=== PATIENT | male | born 1985 | race Caucasian/White ===

== ENCOUNTER 2018-03-03 10:58 | Emergency (ER) | payer SELFPAY ==
[2018-03-03] MEDS ORDERED: IBUPROFEN 400 MG TAB ONE (14:03)
[2018-03-03] MEDS ORDERED: LIDOCAINE 1% 20 ML MDV ONE (14:50)
[2018-03-03] MEDS ORDERED: LIDOCAINE 1% W/EPI 1:100,000 MDV 50 ML VIAL ONE (14:51)
--- NOTE | 2018-03-03 15:25 | RAD REPORT ---
EXAM DESCRIPTION: RAD - Hand Right 3 View - 03/03/2018 2:31 pm CLINICAL HISTORY: Pain and swelling, right hand. COMPARISON: None. FINDINGS: Soft tissue swelling is seen affecting the fourth digit. No fracture, dislocation or forei gn body is present.
[2018-03-03] MEDS ORDERED: CEFAZOLIN SODIUM 1 GM/VIAL ONE (16:01)
[2018-03-03] MEDS ORDERED: WATER FOR INJ,STERILE 10 ML ONE (16:01)
--- NOTE | 2018-03-03 16:16 | ER ---
Nurse's Notes [facility] Name: Navi Cool Age: 32 yrs Sex: Male : 1985 Arrival Date: 03/03/2018 Time: 10:59 Bed 28 Private MD: Diagnosis: Laceration of flexor muscle, fascia and tendon of right ring finger at wrist and hand level;Laceration without foreign body of right hand Presentation: 03/03 11:36 Presenting complaint: Patient states: " I was rolling up a broken tape measure and it ph broke and stabbed me in the ring finger. It's not bleeding much but I can't really move it." Reports puncture to base of R ring finger. Transition of care: patient was not received from another setting of care. Onset of symptoms was March 03, 2018. Initial Sepsis Screen: Does the patient meet any 2 criteria? No. Patient's initial sepsis screen is negative. Does the patient have a suspected source of infection? No. Patient's initial sepsis screen is negative. Care prior to arrival: None. 11:36 Method Of Arrival: Ambulatory ph 11:36 Acuity: ABA 4 ph Historical: - Allergies: 11:39 No Known Allergies; ph - Home Meds: 11:39 None [Active]; ph - PMHx: 11:39 diabetes-controlled w/ diet; ph - PSHx: 11:39 None; ph - Immunization history:: Last tetanus immunization: up to date. - Social history:: Smoking status: Patient uses tobacco products, vape. Screenin:58 Abuse screen: Denies threats or abuse. Denies injuries from another. Nutritional ed1 screening: No deficits noted. Tuberculosis screening: No symptoms or risk factors identified. Fall Risk None identified. Assessment: 12:58 General: Appears in no apparent distress. Behavior is calm, cooperative. Pain: ed1 Complains of pain in right hand Pain does not radiate. Pain currently is 2 out of 10 on a pain scale. Quality of pain is described as throbbing, Pain began 1 hour ago. Is continuous. Neuro: Level of Consciousness is awake, alert, obeys commands, Oriented to person, place, time, situation. Cardiovascular: Denies chest pain, Heart tones S1 S2 present. Respiratory: Airway is patent Respiratory effort is even, unlabored, Respiratory pattern is regular, symmetrical, Breath sounds are clear bilaterally. GI: No signs and/or symptoms were reported involving the gastrointestinal system. : No signs and/or symptoms were reported regarding the genitourinary system. EENT: No signs and/or symptoms were reported regarding the EENT system. Derm: Skin is pink, warm \\T\\ dry. Musculoskeletal: Circulation, motion, and sensation intact. Injury Description: Puncture sustained to right hand was sustained 1-2 hours ago. 12:58 Reassessment: I agree with assessment completed by ISIDRO Bland . aa5 13:48 Reassessment: Patient appears in no apparent distress at this time. No changes from ed1 previously documented assessment. Patient and/or family updated on plan of care and expected duration. Pain level reassessed. Patient is alert, oriented x 3, equal unlabored respirations, skin warm/dry/pink. Patient states symptoms have not improved. 15:28 Reassessment: Patient appears in no apparent distress at this time. No changes from ed1 previously documented assessment. Patient and/or family updated on plan of care and expected duration. Pain level reassessed. Patient is alert, oriented x 3, equal unlabored respirations, skin warm/dry/pink. Patient states symptoms have not improved. 16:30 Reassessment: Patient appears in no apparent distress at this time. Patient and/or ed1 family updated on plan of care and expected duration. Pain level reassessed. Patient is alert, oriented x 3, equal unlabored respirations, skin warm/dry/pink. Pt refused antibiotics. Vital Signs: 11:39 BP 134 / 97; Pulse 35; Resp 18; Temp 97.8; Pulse Ox 98% on R/A; Weight 95.25 kg; Height ph 5 ft. 11 in. (180.34 cm); Pain 2/10; 13:48 BP 128 / 97; Pulse 65; Resp 17; Pulse Ox 99% on R/A; Pain 2/10; ed1 15:28 BP 124 / 78; Pulse 83; Resp 17; Pulse Ox 100% on R/A; Pain 4/10; ed1 16:30 BP 132 / 87; Pulse 76; Resp 16; Temp 97.3(O); Pulse Ox 99% on R/A; Pain 6/10; ed1 11:39 Body Mass Index 29.29 (95.25 kg, 180.34 cm) ph ED Course: 10:59 Patient arrived in ED. sb2 11:38 Triage completed. ph 11:40 Arm band placed on. ph 12:48 Pavel Esquivel PA is PHCP. cp 12:48 Pavel Walton MD is Attending Physician. cp 12:58 Edwina Ely LVN is Primary Nurse. ed1 12:58 Patient has correct armband on for positive identification. Bed in low position. Call ed1 light in reach. 14:12 Irrigation of puncture on palmar aspect of proximal phalanx of right ring finger ed1 irrigated with normal saline Patient tolerated poorly. 14:28 X-ray completed. Portable x-ray completed in exam room. jr1 14:30 XRAY Hand RIGHT 3 View In Process Unspecified. EDMS 15:19 Faisal Tony MD is Attending Physician. cp 16:11 Chetan Vela MD is Referral Physician. cp 16:30 No provider procedures requiring assistance completed. Patient did not have IV access ed1 during this emergency room visit. Administered Medications: 14:04 Drug: Ibuprofen 800 mg Route: PO; ed1 16:31 Follow up: Response: No adverse reaction ed1 16:12 CANCELLED (Other Intervention Used): Ancef 1 grams IVPB once ed1 16:14 Not Given (Patient Refused): Ancef 1 grams IM once ed1 Outcome: 16:15 Discharge ordered by MD. cp 16:30 Discharged to home ambulatory. ed1 16:30 Condition: good 16:30 Discharge instructions given to patient, Instructed on discharge instructions, follow up and referral plans. medication usage, Demonstrated understanding of instructions, follow-up care, medications, Prescriptions given X 1. 16:31 Patient left the ED. ed1 Signatures: Dispatcher [employer] EDMS Carly Villanueva jr1 Danielle Ivan, RN RN aa5 Edwina Ely LVN [employer]RIST [employer]IN KEEPER ed1 Brenda Faustin RN RN Pavel Esquivel PA PA cp Sue Garcia sb2
--- NOTE | 2018-03-03 16:16 | EDPHYS ---
Physician Documentation [facility] Name: Navi Cool Age: 32 yrs Sex: Male : 1985 Arrival Date: 03/03/2018 Time: 10:59 Bed 28 Private MD: ED Physician Faisal Tony HPI: 03/03 13:15 This 32 yrs old Male presents to ER via Ambulatory with complaints of cp LACERATION TO FINGER. Historical: - Allergies: 11:39 No Known Allergies; ph - Home Meds: 11:39 None [Active]; ph - PMHx: 11:39 diabetes-controlled w/ diet; ph - PSHx: 11:39 None; ph - Immunization history:: Last tetanus immunization: up to date. - Social history:: Smoking status: Patient uses tobacco products, vape. ROS: 13:20 Constitutional: Negative for body aches, chills, fever, poor PO intake. cp 13:20 Eyes: Negative for injury, pain, redness, and discharge. cp 13:20 ENT: Negative for drainage from ear(s), ear pain, difficulty swallowing, difficulty handling secretions. 13:20 Cardiovascular: Negative for chest pain, edema, palpitations. 13:20 Respiratory: Negative for cough, shortness of breath, wheezing. 13:20 Abdomen/GI: Negative for abdominal pain, nausea, vomiting, and diarrhea. 13:20 MS/extremity: Positive for decreased range of motion, of the right fourth finger, Negative for paresthesias. 13:20 Skin: Positive for laceration(s), of the palmar aspect of proximal phalanx of right ring finger. 13:20 All other systems are negative. Exam: 13:30 Constitutional: The patient appears in no acute distress, alert, awake, cp non-diaphoretic, non-toxic, well developed, well nourished. 13:30 Head/Face: Normocephalic, atraumatic. cp 13:30 Eyes: Periorbital structures: appear normal, Conjunctiva: normal, no exudate, no injection, Lids and lashes: appear normal, bilaterally. 13:30 ENT: External ear(s): are unremarkable, Nose: is normal, Mouth: Lips: moist, Oral mucosa: moist, Posterior pharynx: is normal, airway is patent, no erythema, no exudate. 13:30 Chest/axilla: Inspection: normal. 13:30 Cardiovascular: Rate: normal, Rhythm: regular. Vital Signs: 11:39 BP 134 / 97; Pulse 35; Resp 18; Temp 97.8; Pulse Ox 98% on R/A; Weight 95.25 kg; Height ph 5 ft. 11 in. (180.34 cm); Pain 2/10; 13:48 BP 128 / 97; Pulse 65; Resp 17; Pulse Ox 99% on R/A; Pain 2/10; ed1 15:28 BP 124 / 78; Pulse 83; Resp 17; Pulse Ox 100% on R/A; Pain 4/10; ed1 16:30 BP 132 / 87; Pulse 76; Resp 16; Temp 97.3(O); Pulse Ox 99% on R/A; Pain 6/10; ed1 11:39 Body Mass Index 29.29 (95.25 kg, 180.34 cm) ph MDM: 12:53 Patient medically screened. 15:45 Physician consultation: DR Wilder, hand surgeon \T\[facility], will see patient in cp office tomorrow. Patient can call clinic \T\[phone]. 03/03 13:59 Order name: XRAY Hand RIGHT 3 View; Complete Time: 15:29 cp 03/03 13:59 Order name: Wound Care: please clean and irrigate wound; Complete Time: 14:12 cp Administered Medications: 14:04 Drug: Ibuprofen 800 mg Route: PO; ed1 16:31 Follow up: Response: No adverse reaction ed1 16:12 CANCELLED (Other Intervention Used): Ancef 1 grams IVPB once ed1 16:14 Not Given (Patient Refused): Ancef 1 grams IM once ed1 Disposition: 03/03/18 16:15 Discharged to Home. Impression: Laceration of flexor muscle, fascia and tendon of right ring finger at wrist and hand level, Laceration without foreign body of right hand. - Condition is Stable. - Discharge Instructions: Laceration Care, Adult, Tendon Injury. - Prescriptions for Keflex 500 mg Oral Capsule - take 1 capsule by ORAL route every 6 hours for 10 days; 40 capsule. - Medication Reconciliation Form, Thank You Letter, Antibiotic Education, Prescription Opioid Use form. - Follow up: Chetan Vela MD; When: Tomorrow; Reason: call office for immediate appointment. Follow up: Private Physician; When: DR Wilder, office #[phone], for immediate appointment; Reason: Wound Recheck, repair of flexor tendon. - Problem is new. - Symptoms have improved. Signatures: Dispatcher [employer] EDMS Edwina Ely, DESIGN CONSULTANT DESIGN CONSULTANT ed1 Brenda Faustin RN RN ph Sierra, Pavel, NELLY PA cp Corrections: (The following items were deleted from the chart) 15:36 15:17 Physician consultation: Chetan Vela MD was called at 15:17, was contacted at 15:17, and will see patient in office, tomorrow, 16:12 15:39 IV Saline Lock ordered. ed1 16:12 15:39 Ancef 1 grams IVPB once ordered. ed1 16:31 16:15 03/03/2018 16:15 Discharged to Home. Impression: Laceration of flexor muscle, ed1 fascia and tendon of right ring finger at wrist and hand level; Laceration without foreign body of right hand. Condition is Stable. Forms are Medication Reconciliation Form, Thank You Letter, Antibiotic Education, Prescription Opioid Use. Follow up: Chetan Vela; When: Tomorrow; Reason: call office for immediate appointment. Follow up: Private Physician; When: DR Wilder, office #[phone], for immediate appointment; Reason: Wound Recheck, repair of flexor tendon. Problem is new. Symptoms have improved. cp
== END 2018-03-03 16:31 | disposition home or self-care (01) ==
LOC: ER 10:58
DX: S66.124A Laceration of flexor muscle, fascia and tendon of right ring finger at wrist and hand level, initial encounter (principal); S61.411A Laceration without foreign body of right hand, initial encounter; W27.8XXA Contact with other nonpowered hand tool, initial encounter; Y93.89 Activity, other specified; Y92.9 Unspecified place or not applicable; Z72.0 Tobacco use; E11.9 Type 2 diabetes mellitus without complications
CPT/HCPCS: 99284; J0690